=== PATIENT | male | born 1965 | race Caucasian/White ===

== ENCOUNTER 2021-09-13 09:33 | Emergency (ER) | payer OTHER, SELFPAY ==
[2021-09-13 09:40] VITALS: BP 144/87; PULSE 78; RESP 18; TEMP 37; O2SAT 96
--- NOTE | 2021-09-13 10:08 | ED.URI ---
HPI - URI/Sore Throat General Chief Complaint: Upper Respiratory Infection Stated Complaint: Sore Throat/Ear Pain Time Seen by Provider: 09/13/21 10:09 Source: patient, RN notes reviewed and old records reviewed Mode of arrival: ambulatory Limitations: no limitations History of Present Illness HPI Narrative: 55-year-old male presents to [facility] care with complaints of sore throat since Sunday along with bilateral ear pain. Patient denies any fevers chills or sweats, states pain is worse at night does have a history of seasonal allergies does take a daily antihistamine. Patient states he has pressure around his eyes and also tenderness in his tonsillar lymph nodes on palpation. Patient has had COVID vaccinations and booster MD elicited complaint: sore throat and other (ear pain) Pertinent past history: seasonal allergies Pain scale (0-10): 4 Able to tolerate fluids by mouth: Yes Treatments prior to arrival: other (daily antihistamine, Nyquil) Related Data Home Medications Medication Instructions Recorded Confirmed apremilast 30 mg tablet (Otezla) 1 tablet PO DIRECTED 09/13/21 09/13/21 Allergies Allergy/AdvReac Type Severity Reaction Status Date / Time No Known Allergies Allergy Unverified 09/13/21 09:50 Review of Systems Review of Systems: CONSTITUTIONAL: Denies fever, chills, or sweats. EYES: Denies visual changes, redness, or discharge. ENT: Denies rhinorrhea, congestion, poaitive for sore throat, or otalgia.pressure around eyes CARDIOVASCULAR: Denies chest pain, palpitations, or edema. RESPIRATORY: Denies cough or dyspnea. GASTROINTESTINAL: Denies abdominal pain, nausea, vomiting, or diarrhea. GENITOURINARY: Denies dysuria or hematuria. SKIN: Denies rash or itching. MUSCULOSKELETAL: Denies back pain, joint pain, or myalgia. NEUROLOGIC: Denies headache, numbness, or weakness. PSYCHIATRIC: Denies anxiety or depression. [facility] Past Medical History Medical History (Updated 09/13/21 @ 22:24 by Elizabeth Phillips NP) Plaque psoriasis Seasonal allergies Surgical History Surgical History (Updated 09/13/21 @ 10:22 by Elizabeth Phillips NP) H/O arthroscopy of left knee H/O arthroscopy of right knee S/P left rotator cuff repair Status post right rotator cuff repair Social History Social History (Updated 09/13/21 @ 22:21 by Elizabeth Phillips NP) Smoking status: Former smoker Alcohol intake: current Alcohol use details: rare social Substance use type: does not use Living arrangements: with family Gender identity (if verbalized by the patient): Male Comments At time of signature, agree with nursing past medical, surgical, social and family history. There is no relevant family history pertinent to the presenting complaint Exam Narrative: GENERAL: Well-appearing, well-nourished, and in no acute distress. HEAD: Normocephalic, atraumatic. EYES: PERRLA and EOMI. ENT: Nares clear, no rhinorrhea or epistaxis. Mucous membranes moist. NECK: Supple.lymphadenopathy CHEST: Clear to auscultation. No respiratory distress.TM's noted normally bilaterally with dull light reflex throat red with uvula red and swollen midline, no lesions or exudates tonsil enlarged and red. HEART: Regular rate and rhythm. No murmur heard. Normal peripheral pulses. ABDOMEN: Soft, nontender, nondistended, normal active bowel sounds., no tachypnea, SAO2 96% on room air EXTREMITIES: Normal range of motion. No edema. SKIN: Warm, dry, no rash. NEURO: No focal deficits. Alert and oriented x3. Course Course Level of Care: Express Care Visit Vital Signs Vital signs: Vital Signs Temperature 37.0 C 09/13/21 09:40 Pulse Rate 78 09/13/21 09:40 Respiratory Rate 18 09/13/21 09:40 Blood Pressure 144/87 H 09/13/21 09:40 Pulse Oximetry 96 09/13/21 09:40 Oxygen Delivery Room Air 09/13/21 09:40 Temperature 37.0 C 09/13/21 09:40 Pulse Rate 78 09/13/21 09:40 Respiratory Rate 18 09/13/21 09:40 Blood Pressur
== END 2021-09-13 10:35 | disposition home or self-care (01) ==
PROVIDERS: Emergency Provider Registered Nurse; PCP Family Medicine
DX: J03.90 Acute tonsillitis, unspecified (principal); J06.9 Acute upper respiratory infection, unspecified; Z87.891 Personal history of nicotine dependence
CPT/HCPCS: 87081; 87880; 99203; G0463